=== PATIENT | female | born 1990 | race Caucasian/White ===

== ENCOUNTER 2022-11-13 18:24 | Emergency (ER) | payer MEDICAID ==
[2022-11-13] MEDS ORDERED: Ondansetron 4 MG/2 ML SDV IVPUSH ONE (19:42)
[2022-11-13] MEDS ORDERED: Sodium Chloride 0.9% 1,000 ML IV SCH (19:45)
== END 2022-11-13 21:40 | disposition home or self-care (01) ==
LOC: JP.ED 18:24
DX: O20.9 Hemorrhage in early pregnancy, unspecified (principal); Z3A.13 13 weeks gestation of pregnancy
CPT/HCPCS: 76815; 81001; 96361; 96374; 99284; J2405; J7030